=== PATIENT | male | born 1970 | race Two or more races ===

== ENCOUNTER 2021-01-11 09:22 | Emergency (ER) | payer SELFPAY ==
[~2021-01-11] VITALS: Ht 175.3 cm; Wt 83.4 kg
[2021-01-11 09:27] VITALS: BP 140/87
[2021-01-11] MEDS ORDERED: KETOROLAC 60 MG/2 ML VIAL. IM ONE (09:45)
[2021-01-11] MEDS ORDERED: methylPREDNISolone SOD SUCC PF 125 MG/2 ML VIAL. IM ONE (09:45)
--- NOTE | 2021-01-11 09:58 | RAD ---
EXAMINATION: XR SHOULDER_RIGHT 2+ VIEWS CLINICAL HISTORY: Right shoulder pain X 1 month TECHNIQUE: XR SHOULDER_RIGHT 2+ VIEWS COMPARISON: None FINDINGS/ IMPRESSION: Glenohumeral joint alignment maintained. Mild acromioclavicular degenerative changes. Slight irregula rity of the distal acromion, nonspecific and could be related to an os acromiale. No acute fracture. Electronically signed by: Alejandro Chavez DO (01/11/2021 9:56 AM) [id number]
[2021-01-11] MEDS ORDERED: NAPR-682 PO (10:21)
[2021-01-11] MEDS ORDERED: PRED20TA PO (10:21)
--- NOTE | 2021-01-11 10:22 | PHYS DOC ---
Past Medical History Past Surgical History: No Surgical History Smoking Status: Current Every Day Smoker Additional Information: < 0.25 PPD Alcohol Use: Rarely General Adult EDM: Chief Complaint: SHOULDER INJURY HPI: HPI: Patient is a 50 year old male who present to ER for evaluation of right shoulder pain that been going on for 1 month. Patient says sometimes he has some tingling sensation to his right arm. Patient denies any neck injury, no neck pain. Patient denies any chest pain, no trouble breathing. Review of Systems: Review of Systems: Constitutional: Denies fever or chills. [] Eyes: Denies change in visual acuity. [] HENT: Denies nasal congestion or sore throat. [] Respiratory: Denies cough or shortness of breath. [] Cardiovascular: Denies chest pain or edema. [] GI: Denies abdominal pain, nausea, vomiting, bloody stools or diarrhea. [] : Denies dysuria. [] Musculoskeletal: Denies back pain, positive for right shoulder pain Integument: Denies rash. [] Neurologic: Denies headache, focal weakness or sensory changes. [] Endocrine: Denies polyuria or polydipsia. [] Lymphatic: Denies swollen glands. [] Psychiatric: Denies depression or anxiety. [] Heart Score: C/O Chest Pain: N/A Risk Factors: Risk Factors: DM, Current or recent (<one month) smoker, HTN, HLP, family history of CAD, obesity. Risk Scores: Score 0 - 3: 2.5% MACE over next 6 weeks - Discharge Home Score 4 - 6: 20.3% MACE over next 6 weeks - Admit for Clinical Observation Score 7 - 10: 72.7% MACE over next 6 weeks - Early Invasive Strategies Current Medications: Current Medications Medications (Trade) Dose Ordered Sig/Lizet Start Time Stop Time Status Last Admin Dose Admin Ketorolac Tromethamine (Toradol Im) 60 mg 1X ONCE 01/11/21 09:45 01/11/21 09:47 DC 01/11/21 09:59 60 MG Methylprednisolone Sodium Succinate (SOLU-Medrol 125MG VIAL) 125 mg 1X ONCE 01/11/21 09:45 01/11/21 09:47 DC 01/11/21 09:59 125 MG Allergies: Allergies: Allergies Coded Allergies Type Severity Reaction Last Updated Verified No Known Drug Allergies 01/11/21 No Physical Exam: PE: Constitutional: Well developed, well nourished, no acute distress, non-toxic appearance. [] HENT: Normocephalic, atraumatic, bilateral external ears normal, oropharynx moist, no oral exudates, nose normal. [] Eyes: PERRLA, EOMI, conjunctiva normal, no discharge. [] Neck: Normal range of motion, no tenderness, supple, no stridor. [] Cardiovascular:Heart rate regular rhythm, no murmur [] Lungs & Thorax: Bilateral breath sounds clear to auscultation [] Abdomen: Bowel sounds normal, soft, no tenderness, no masses, no pulsatile masses. [] Skin: Warm, dry, no erythema, no rash. [] Back: No tenderness, no CVA tenderness. [] Extremities: No tenderness, no cyanosis, no clubbing, ROM intact, no edema. [] Neurologic: Alert and oriented X 3, normal motor function, normal sensory function, no focal deficits noted. [] Psychologic: Affect normal, judgement normal, mood normal. [] Current Patient Data: Vital Signs: Vital Signs Date Time Temp Pulse Resp B/P (MAP) Pulse Ox O2 Delivery O2 Flow Rate FiO2 01/11/21 09:27 98.3 88 16 140/87 (104) 97 Room Air 98.3 EKG: EKG: [] Radiology/Procedures: Radiology/Procedures: [][facility] [address] [place] [address] IMAGING REPORT Signed PAT[id number] : 1970 LOCATION: ER AGE: 50 SEX: M EXAM STATUS: REG ER ORD. PHYSICIAN: SABA WEINER DO REASON: right shoulder pain X 1 month PROCEDURE: SHOULDER 2+V RIGHT EXAMINATION: XR SHOULDER_RIGHT 2+ VIEWS CLINICAL HISTORY: Right shoulder pain X 1 month TECHNIQUE: XR SHOULDER_RIGHT 2+ VIEWS COMPARISON: None FINDINGS/ IMPRESSION: Glenohumeral joint alignment maintained. Mild acromioclavicular degenerative changes. Slight irregularity of the distal acromion, nonspecific and could be related to an os acromiale. No acute fracture. Electronically signed by: Alejandro Joseph DO (01/11/2021 9:56 AM) [id number] DICTATED and SIGNED BY: ALEJANDRO JOSEPH DO DATE: 01/11/21 [id number] 0 Course & Med Decision Making: Course & Med Decision Making Pertinent Labs and Imaging studies reviewed. (See chart for details) Patient is a 50-year-old male who present to ER due to right shoulder pain, examination did not show any evidence of dislocation or injury. X-ray of the right shoulder show some arthritic changes, patient with multiple area of tendinitis of his right shoulder. Patient will be put on anti-inflammatory medication and steroid. Patient need to follow-up with your family physician for reevaluation in a few weeks if pain not improved Tara Disclaimer: Tara Disclaimer: This electronic medical record was generated, in whole or in part, using a voice recognition dictation system. Departure Departure Impression: Primary Impression: Right shoulder tendinitis Disposition: HOME / SELF CARE / HOMELESS Condition: STABLE Referrals: NO PCP (PCP) Please follow up with [facility] this week. [address], [address] [place] [address] Phone number: [phone] Patient Instructions: Shoulder Pain Scripts Naproxen Sodium (ANAPROX DS) 550 Mg Tablet 1 TAB PO BID for 15 Days, #30 TAB 0 Refills Prov: SABA WEINER DO 01/11/21 Prednisone (PREDNISONE) 20 Mg Tablet 40 MG PO DAILY for 7 Days, #14 TAB Prov: SABA WEINER DO 01/11/21 SABA WEINER DO Jan 11, 2021 10:22
== END 2021-01-11 10:45 | disposition home or self-care (01) ==
LOC: ER 09:22
DX: M75.91 Shoulder lesion, unspecified, right shoulder (principal); F17.200 Nicotine dependence, unspecified, uncomplicated
CPT/HCPCS: 73030; 96372; 99284; J1885; J2930